=== PATIENT | female | born 2000 | race Caucasian/White ===

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

== ENCOUNTER 2019-03-14 10:19 | Emergency (ER) | payer MEDICAID, OTHER ==
[2019-03-14 10:28] VITALS: BP 138/75
[2019-03-14] MEDS ORDERED: IBUPROFEN 800 MG TABLET PO ONE (10:56)
--- NOTE | 2019-03-14 11:07 | RADIOLOGY REPORT (SQ) ---
EXAM DESCRIPTION: HAND RIGHT 3 VIEWS COMPLETED DATE/TIME: 03/14/2019 10:48 am REASON FOR STUDY: bone tenderness COMPARISON: None. EXAM PARAMETERS: NUMBER OF VIEWS: Three views. TECHNIQUE: AP, lateral and oblique radiographic images acquired of the right hand. LIMITATIONS: None. FINDINGS: MINERALIZATION: Normal. BONES: Obliquely oriented fracture of the proximal 5th metacarpal with 1 shaft radial displacement of the distal fracture fragment. No intra-articular extension. No additional fractures identified. JOINTS: No effusions. SOFT TISSUES: Soft tissue swelling about the hand. No radiopaque foreign body. OTHER: No other significant finding. IMPRESSION: Obliquely oriented fracture of the proximal 5th metacarpal with 1 shaft width radial dis placement of the distal fracture fragment. No intra-articular extension. TECHNICAL DOCUMENTATION: JOB ID: [id number] [employer]- All Rights Reserved Reading location - IP/workstation name: [email or web address]
--- NOTE | 2019-03-14 11:11 | ER Document Report ---
ED Hand/Wrist Injury - General Chief Complaint: Hand Pain Stated Complaint: RIGHT HAND INJURY Time Seen by Provider: 03/14/19 10:54 Primary Care Provider: [facility] [Provider Group] - Follow up as needed EMILY GIRON DO [ACTIVE STAFF] - Follow up as needed Mode of Arrival: Ambulatory Information source: Patient Notes: 18-year-old female presented to ED for complaint of pain swelling bruising to the right lateral hand. She states she hit her dresser last night. She states she went to [employer] [facility] this morning and they did take pictures she does have a CD. The hand is injured. There is a boxer's fracture to the hand that is displaced. Patient is alert and oriented respirations regular nonlabored speaking in full sentences. TRAVEL OUTSIDE OF THE [place] IN LAST 30 DAYS: No - HPI Injury to: Hand Onset: Yesterday Where: Home, Indoors Timing: Still present, Worse Severity: Moderate Pain Level: 2 Context: Other - Punched a dresser - Related Data Allergies/Adverse Reactions: No Known Allergies Allergy (Verified 03/14/19 10:26) Past Medical History - General Information source: Patient - Social History Smoking Status: Never Smoker Chew tobacco use (# tins/day): No Frequency of alcohol use: None Drug Abuse: None Lives with: Family Family History: Reviewed & Not Pertinent Patient has suicidal ideation: No Patient has homicidal ideation: No - Past Medical History Cardiac Medical History: Reports: None Pulmonary Medical History: Reports: None EENT Medical History: Reports: None Neurological Medical History: Reports: None Endocrine Medical History: Reports: None Renal/ Medical History: Reports: None Malignancy Medical History: Reports: None GI Medical History: Reports: None Musculoskeletal Medical History: Reports None Skin Medical History: Reports None Psychiatric Medical History: Reports: Hx Anxiety Traumatic Medical History: Reports: None Infectious Medical History: Reports: None Surgical Hx: Negative Past Surgical History: Reports: None - Immunizations Immunizations up to date: Yes Review of Systems - Review of Systems Constitutional: No symptoms reported EENT: No symptoms reported Cardiovascular: No symptoms reported Respiratory: No symptoms reported Gastrointestinal: No symptoms reported Genitourinary: No symptoms reported Female Genitourinary: No symptoms reported Musculoskeletal: Other - Right lateral hand ecchymotic swollen painful she has range of motion to her fifth finger but it is very painful due to the broken fifth metacarpal Skin: No symptoms reported Hematologic/Lymphatic: No symptoms reported Neurological/Psychological: No symptoms reported -: Yes All other systems reviewed and negative Physical Exam - Vital signs Vitals: Temp Pulse Resp BP Pulse Ox 98.2 F 56 L 18 138/75 H 96 03/14/19 10:27 03/14/19 10:27 03/14/19 10:03/14/19 10:03/14/19 10:27 Interpretation: Normal - General General appearance: Appears well, Alert - HEENT Head: Normocephalic, Atraumatic Eyes: Normal Pupils: PERRL - Respiratory Respiratory status: No respiratory distress Chest status: Nontender Breath sounds: Normal Chest palpation: Normal - Cardiovascular Rhythm: Regular Heart sounds: Normal auscultation Murmur: No - Abdominal Inspection: Normal Distension: No distension Bowel sounds: Normal Tenderness: Nontender Organomegaly: No organomegaly - Back Back: Normal, Nontender - Extremities General upper extremity: Normal inspection, Nontender, Normal color, Normal ROM, Normal temperature General lower extremity: Normal inspection, Nontender, Normal color, Normal ROM, Normal temperature, Normal weight bearing. No: Kathy's sign - Neurological Neuro grossly intact: Yes Cognition: Normal Orientation: AAOx4 Shavon Coma Scale Eye Opening: Spontaneous Shavon Coma Scale Verbal: Oriented Shavon Coma Scale Motor: Obeys Commands [place] Coma Scale Total: 15 Speech: Normal Motor strength normal: LUE, RUE, LLE, RLE Sensory: Normal - Psychological Associated symptoms: Normal affect, Normal mood - Skin Skin Temperature: Warm Skin Moisture: Dry Skin Color: Normal Course - Re-evaluation Re-evalutation: 03/14/19 11:13 Reviewed x-ray from [facility] which had a displaced boxer fracture I did consult Dr. Escobedo who stated that I should just place the patient in a boxer event and sling and have her follow-up with orthopedics. - Vital Signs Vital signs: Temp Pulse Resp BP Pulse Ox 98.2 F 56 L 18 138/75 H 96 03/14/19 10:27 03/14/19 10:27 03/14/19 10:27 03/14/19 10:27 03/14/19 10:27 - Diagnostic Test Radiology reviewed: Reports reviewed Procedures - Immobilization Right Hand Immobilizer type: Sling, Other - boxer's splint Performed by: PCT Post-Proc Neuro Vasc Exam: Normal Alignment checked and good: Yes Discharge - Discharge Clinical Impression: right boxer's fracture 5th metacarpal Condition: Stable Disposition: HOME, SELF-CARE Additional Instructions: Fractured Metacarpal You have broken a metacarpal bone in the hand. The fracture is usually caused by hitting the hand against a hard surface, but can also be caused by jamming a finger. At first the injury should be rested, elevated, and ice packed. The usual treatment is splinting for four to six weeks. For some patients, a cast is preferable. The physician will advise you. It's important to avoid any twisting or jamming of the fingers while the fracture is healing. Force on the fingers can make the fracture move. Usually, one or two fingers are included in the splint or cast. Sometimes fingers are taped instead -- in this case, extra caution to prevent a twisting of the fingers is necessary. Call the doctor or come back if swelling or pain become severe, if numbness develops, or if you suspect you may have disturbed the fracture. Splint Pending Casting Your injury can't be casted until the swelling has subsided. Therefore, a temporary splint has been placed to protect the injury. Full use of an injured area is not possible in a splint. You should follow the doctor's instructions concerning rest, ice, and elevation of the injury. Never do anything which causes pain under the splint. Keep the splint on ALL THE TIME until you return for casting. If there is unexpected severe pain, or numbness, discoloration, or swelling beyond the splint, you should return at once. Ice & Elevation Apply ice packs frequently against the painful area. Many different schedules are recommended, such as "20 minutes on, 20 minutes off" or "one hour ice, two hours rest." If you need to work, you may need to go longer between ice treatments. You should plan to have the area ice packed AT LEAST one-fourth of the time. The ice should be applied over the wrap, tape, or splint, or over a layer of cloth -- not directly against the skin. Some ice bags have a built-in cloth and can be put directly on the skin. Your injured part should be elevated as much as possible over the next 48 hours. Try to keep the injury above the level of the heart. Avoid use of the injured area. Elevation and rest will decrease the swelling. Ibuprofen Ibuprofen is an excellent, safe drug for pain control. In addition, it has potent antiinflammatory effects which are beneficial, especially in the treatment of injuries, arthritis, or tendonitis. It's best to take ibuprofen with food. Persons with ulcer disease or allergy to aspirin should notify their physician of this before taking ibuprofen. Take the medication exactly as prescribed. Don't take additional doses unless instructed to do so by your doctor. If you develop wheezing, shortness of breath, hives, faintness, stomach pain, vomiting, or dark black stools, return for re-evaluation at once. FOLLOW-UP CARE: If you have been referred to a physician for follow-up care, call the physicians office for an appointment as you were instructed or within the next two days. If you experience worsening or a significant change in your symptoms, notify the physician immediately or return to the Emergency Department at any time for re-evaluation. Forms: Elevated Blood Pressure, Return to Work Referrals: [facility] [Provider Group] - Follow up as needed EMILY GIRON DO [ACTIVE STAFF] - Follow up as needed
== END 2019-03-14 11:29 | disposition home or self-care (01) ==
LOC: ER 10:19
PROC: 2W3CX1Z Immobilization of Right Lower Arm using Splint (ICD-10-PCS; principal; 2019-03-14)
DX: S62.396A Other fracture of fifth metacarpal bone, right hand, initial encounter for closed fracture (principal); M79.641 Pain in right hand; M79.89 Other specified soft tissue disorders; W22.03XA Walked into furniture, initial encounter
CPT/HCPCS: 99283

== ENCOUNTER 2019-03-16 11:05 | Day surgery (SDC) | payer OTHER ==
[~2019-03-16 11:05] MED LIST: DEXAMETHASONE SOD PHOSPHATE INJ 4 MG/1 ML VIAL ONE; FENTANYL CITRATE INJ/PF 100 MCG/2 ML AMPUL ONE; MIDAZOLAM 2 MG/2 ML INJ ONE; ONDANSETRON HCL INJ/PF 4 MG/2 ML SDV ONE; PROPOFOL INJ 200 MG/20 ML VIAL IV ONE
[2019-03-16] MEDS ORDERED: CEFAZOLIN SODIUM 2 GM in DEXTROSE 5%-WATER 100 ML IV PRN (11:14)
[2019-03-16 11:54] LABS: ABSOLUTE BASOPHILS # (AUTO) 0.1 10^3/uL (0.0-0.2); ABSOLUTE EOSINOPHILS # (AUTO) 0.3 10^3/uL (0.0-0.6); ABSOLUTE LYMPHOCYTES (AUTO) 1.7 10^3/uL (0.5-4.7); ABSOLUTE MONOCYTES (AUTO) 0.5 10^3/uL (0.1-1.4); ABSOLUTE NEUT (AUTO) 4.3 10^3/uL (1.7-8.2); EOSINOPHILS % (AUTO) 3.8 % (0-6); HEMATOCRIT 42.7 % (36.0-47.0); HEMOGLOBIN 14.2 g/dL (12.0-15.5); LYMPHOCYTES % (AUTO) 24.7 % (13-45); MEAN CORPUSCULAR HEMOGLOBIN 27.5 pg (27.0-33.4); MEAN CORPUSCULAR HGB CONC 33.3 g/dL (32.0-36.0); MEAN CORPUSCULAR VOLUME 83 fl (80-97); MONOCYTES % (AUTO) 7.3 % (3-13); PLATELET COUNT 302 10^3/uL (150-450); RED BLOOD COUNT 5.16 10^6/uL (3.72-5.28); RED CELL DISTRIBUTION WIDTH 14.1 % (11.5-14.0); SEGMENTED NEUTROPHILS % (AUTO) 63.2 % (42-78); TOTAL CELLS COUNTED % (AUTO) 100 %; WHITE BLOOD COUNT 6.8 10^3/uL (4.0-10.5)
[2019-03-16] MEDS ORDERED: FAMOTIDINE INJ/PF 20 MG/2 ML SDV IV ONE (12:00)
[2019-03-16] MEDS ORDERED: SCOPOLAMINE HYDROBROMIDE 1.5 MG PATCH.TD72 ONE (12:00)
[2019-03-16 12:12] LABS: ANION GAP 11 (5-19); BLOOD UREA NITROGEN 10 mg/dL (7-20); CARBON DIOXIDE 27 mmol/L (22-30); CHLORIDE 102 mmol/L (98-107); GLUCOSE 77 mg/dL (75-110); POTASSIUM 4.2 mmol/L (3.6-5.0)
[2019-03-16] MEDS ORDERED: DIPHENHYDRAMINE HCL 50 MG/ML VIAL IV PRN (14:16)
[2019-03-16] MEDS ORDERED: FENTANYL CITRATE INJ/PF 100 MCG/2 ML AMPUL IV PRN ×2 (14:16)
[2019-03-16] MEDS ORDERED: MEPERIDINE HCL/PF INJ 25 MG/1 ML DISP.SYRIN IV PRN (14:16)
[2019-03-16] MEDS ORDERED: PROMETHAZINE HCL INJ 25 MG/1 ML VIAL IV PRN ×2 (14:16)
[2019-03-16] MEDS ORDERED: MORPHINE SULFATE 10 MG/ML INJ IV PRN ×2 (14:16→15:48)
[2019-03-16] MEDS ORDERED: ONDANSETRON HCL INJ/PF 4 MG/2 ML SDV IV PRN (14:16)
[2019-03-16] MEDS ORDERED: BUPIVACAINE HCL 0.5 % INJ/PF 30 ML SDV ONE (15:13)
[2019-03-16] MEDS ORDERED: OXYCODONE-ACETAMINOPHEN 5-325 MG TABLET PO PRN (15:48)
[2019-03-16] MEDS ORDERED: ONDANSETRON HCL INJ/PF 4 MG/2 ML SDV ONE (15:48)
--- NOTE | 2019-03-16 15:48 | Discharge Summary ---
Discharge Summary (SDC) - Discharge Final Diagnosis: Right fifth metacarpal fracture Date of Surgery: 03/16/19 Discharge Date: 03/16/19 Condition: Good Treatment or Instructions: Schedule Follow Up w/ Dr. Carroll Jackson @ [facility] for Surgery to be seen in 10-14 days or as scheduled [place]: Reader: [place]: Ice and elevate Keep splint clean/dry/intact, do not remove. If your fingers become numb please unwrap the Royal wrap but leave the splint in place, if the sensation does not return within 30 minutes please return to the emergency department. May begin finger range of motion attempting to make full fist. Please use ibuprofen (Motrin or Advil) 600-800 mg every 8 hours as needed for pain or fever DO NOT TAKE w/ TORADOL may use once TORADOL complete. You may also use acetaminophen (Tylenol) 1000 mg every 4-6 hours as needed for pain or fever. Please be aware that many medications contain acetaminophen, do not exceed a total of 1000 mg of acetaminophen every 6 hours. If ibuprofen and acetaminophen are not sufficient for your pain you may take the Percocet/[place]. Please be aware that the Percocet/[place] does contain Tylenol. Stool softener of choice when on pain medication. USE OF [id number] IBUPROFEN: Ibuprofen (Advil, Nuprin, Medipren, Motrin IB) is a medication for fever and pain control. In addition, it has anti- inflammatory effects which may be beneficial, especially in the treatment of injuries. It's best to take ibuprofen with food. Persons with ulcer disease or allergy to aspirin should notify their physician of this before taking ibuprofen. Ibuprofen can be given every four to six hours, for a total of four doses daily. Age Pain or fever dose Antiinflammatory dose 6-8 yr 200 mg (1 tab) 200 mg (1 tab) 9-11 yr 200 mg (1 tab) 200-400 mg (1-2 tab) 11-14 yr 200-400 mg (1-2 tab) 400 mg (2 tab) 15-adult 400 mg (2 tab) 600 mg (3 tab) ORAL NARCOTIC MEDICATION: You have been given a prescription for pain control. This medication is a narcotic. It's best taken with food, as nausea can result if taken on an empty stomach. Don't operate machinery or drive within six hours of taking this medication. Do not combine this medicine with alcohol, or with any medication which can cause sedation (such as cold tablets or sleeping pills) unless you get permission from the physician. Narcotics tend to cause constipation. If possible, drink plenty of fluids and eat a diet high in fiber and fruits. Please be aware that prescription narcotics also have the potential for abuse. People become addicted to these medications because of the general sense of wellbeing that they induce. This feeling along with a significant reduction in tension, anxiety, and aggression provides a stimulating seductive quality to these drugs. Once your pain is under control, we encourage you to discard your unused narcotics. Prescriptions: Oxycodone HCl/Acetaminophen [Percocet 5-325 mg Tablet] 1 tab PO Q6 PRN #25 tab PRN Reason: Discharge Diet: As Tolerated Respiratory Treatments at Home: Deep Breathing/Coughing Discharge Activity: No Lifting Over 10 Pounds, No Lifting/Push/Pulling Report the Following to Your Physician Immediately: Fever over 101 Degrees, Unusual Bleeding, Redness, Swelling, Warmth, Increased Soreness
--- NOTE | 2019-03-16 15:52 | Operative Report ---
Operative Report DATE OF SURGERY: 03/16/19 PREOPERATIVE DIAGNOSIS: Right fifth proximal third metacarpal fracture POSTOPERATIVE DIAGNOSIS: Same OPERATION: Open reduction to fixation right fifth metacarpal fracture SURGEON: EMILY GIRON ANESTHESIA: GA COMPLICATIONS: None ESTIMATED BLOOD LOSS: Minimal PROCEDURE: Indication for above procedure: 18-year-old female who sustained injury to her right hand when she had a dresser. Patient had notable deformity. Was seen at the emergency room where x-rays demonstrated a fracture. Patient was placed in a splint. [facility] that [facility] options given the amount of displacement decision was made to proceed with operative intervention. Risk and benefits were explained patient verbalized understanding consented for surgical procedure. Procedure In Detail: Patient was seen and evaluated in the preoperative holding area. The RIGHT upper extremity was initialized and marked. Patient received 2g of Ancef IV for bacterial prophylaxis. Patient was taken back to the operative room where transferred to the operative table and placed under general anesthesia. Once they were adequately anesthetized a nonsterile tourniquet was placed on the upper extremity. A surgical team debriefing was performed ensuring all instrumentation was available, the surgical procedure was discussed with possible concerns reviewed. The upper extremity was prepped with chlorhexidine and alcohol and draped in a sterile fashion. A timeout was done identifying correct patient, procedure and extremity everyone in attendance agree with this and verbalized no concerns. The extremity was exsanguinated the tourniquet was inflated to 250 mmHg. Longitudinal skin incision was made along the proximal aspect of the fifth metacarpal. Meticulous blunt dissection was performed branches of the dorsal ulnar sensory nerve identified and retracted. Small peripheral veins were c oagulated bipolar cautery. The proximal metacarpal shaft was then exposed elevating the dorsal interossei. Supraperiosteal dissection was performed proximally and distally. Fracture hematoma was irrigated and evacuated. There was significant comminution throughout the fracture not appreciated on radiographs. Under direct visualization the fracture length, alignment and appropriate rotation were obtained. K wire was placed antegrade and retrograde to provide provisional fixation. C-arm was obtained confirming acceptable reduction of the fracture. 25-gauge dental wire was then placed around the large butterfly fragment medially and secured.. A Bowie 2.3 mm T plate was placed and secured proximally and distally with cortical fixation. C-arm fluoroscopy was obtained confirming appropriate placement of the plate and alignment of the fracture. With tenodesis and forearm squeeze there is no evidence of malrotation. Fixation was then completed within the metacarpal shaft with 3 bicortical screws. One additional cortical screw was placed along the proximal aspect of the plate and a locking screw. No evidence of intra-articular screw penetration. Previous provisional K wire was removed. To provide additional fixation of the comminution a 25-gauge wire was placed around the butterfly fragment to provide 2 points of fixation and secured. This was then bent flush with the plate. Wound was copiously irrigated with normal saline. With tenodesis and forearm squeeze there is no evidence of malrotation or deformity. Deep fascia of the interossei was closed with interrupted 4-0 Monocryl suture providing plate coverage. Subcutaneous tissues were closed with s interrupted 4-0 Monocryl suture. Kin was closed with running subcuticular 4-0 Monocryl reinforced with Dermabond and Steri-Strips. 20 cc of 0.5% bupivacaine with epinephrine was injected for postoperative pain control. Patient was then placed in a ulnar gutter splint leaving the IP joints free. Tourniquet was deflated patient had normal peripheral fusion. Sponge counts, instrument counts, needle counts were correct. Patient was then awoken from anesthesia. Transferred from the operating room table to the operating room stretcher. There was no intraoperative complications patient tolerated procedure well stable to PACU. Postop plan: Patient will follow in the office in 2 weeks at which point we will obtain radiographs and patient will be transition to removable ulnar gutter splint and begin gentle MP and IP joint range of motion.
[2019-03-16] MEDS ORDERED: FENTANYL CITRATE INJ/PF 100 MCG/2 ML AMPUL ONE (16:08)
[2019-03-16] MEDS: FENTANYL CITRATE INJ/PF 100 MCG/2 ML AMPUL IV PRN ×2 (16:12→16:21)
--- NOTE | 2019-03-16 16:17 | RADIOLOGY REPORT (SQ) ---
EXAM DESCRIPTION: HAND RIGHT 3 VIEWS; NO CHG FLUORO COMPLETED DATE/TIME: 03/16/2019 3:53 pm REASON FOR STUDY: PORT S62.316A DISP FX OF BASE OF FIFTH METACARPAL BONE, RIGHT ARAMBULA COMPARISON: 03/14/2019. FLUOROSCOPY TIME: 0.6 minutes. 7 images saved to PACS. TECHNIQUE: Intra-operative images acquired during surgical procedure to evaluate progress. NUMBER OF IMAGES: 7 images. LIMITATIONS: None. FINDINGS: Images of the hand acquired during the procedure. IMPRESSION: IMAGE(S) OBTAINED DURING PROCEDURE. COMMENT: Quality ID [id number]: Final reports for procedures using fluoroscopy that document radiation exp osure indices, or exposure time and number of fluorographic images (if radiation exposure indices are not available) Please consult full operative report of the attending physician for description of the procedure. TECHNICAL DOCUMENTATION: JOB ID: [id number] [employer]- All Rights Reserved Reading location - IP/workstation name: [email or web address]
--- NOTE | 2019-03-16 16:17 | RADIOLOGY REPORT (SQ) ---
EXAM DESCRIPTION: HAND RIGHT 3 VIEWS; NO CHG FLUORO COMPLETED DATE/TIME: 03/16/2019 3:53 pm REASON FOR STUDY: PORT S62.316A DISP FX OF BASE OF FIFTH METACARPAL BONE, RIGHT ARAMBULA COMPARISON: 03/14/2019. FLUOROSCOPY TIME: 0.6 minutes. 7 images saved to PACS. TECHNIQUE: Intra-operative images acquired during surgical procedure to evaluate progress. NUMBER OF IMAGES: 7 images. LIMITATIONS: None. FINDINGS: Images of the hand acquired during the procedure. IMPRESSION: IMAGE(S) OBTAINED DURING PROCEDURE. COMMENT: Quality ID [id number]: Final reports for procedures using fluoroscopy that document radiation exp osure indices, or exposure time and number of fluorographic images (if radiation exposure indices are not available) Please consult full operative report of the attending physician for description of the procedure. TECHNICAL DOCUMENTATION: JOB ID: [id number] [employer]- All Rights Reserved Reading location - IP/workstation name: [email or web address]
[2019-03-16] MEDS ORDERED: OXYCODONE-ACETAMINOPHEN 5-325 MG TABLET ONE (17:10)
[2019-03-16 18:25] VITALS: BP 118/62
== END 2019-03-16 18:15 | disposition home or self-care (01) ==
LOC: OROUT 11:05
PROVIDERS: ATTEND Orthopaedic Surgery
DX: S62.316A Displaced fracture of base of fifth metacarpal bone, right hand, initial encounter for closed fracture (principal); M79.641 Pain in right hand; W22.09XA Striking against other stationary object, initial encounter
CPT/HCPCS: 36415; 85025; 81025; 80048; 73130; 01830; 26615; C1713 ×5; J2250; J3490; J0690; J1100; J3010; J2405; J7060; J2704; S0028